=== PATIENT | female | born 1960 | race Caucasian/White ===

== ENCOUNTER → 2016-09-21 | Outpatient (CLI) | payer OTHER ==
--- NOTE | 2016-09-22 01:58 | REP ---
Clinical: Lower back pain. Comparison: 06/21/2016. Technique: AP, lateral, bilateral oblique, flexion/extension, and coned-down views. Findings: Alignment and lordosis maintained. Vertebral bodies are intact and there is no evidence for acute fracture / compression injury or subluxation. Mild multilevel degenerative changes include subtle anterior spurring along with endplate sclerosis and minimal disc space narrowing. Chronic grade 1 anterolisthesis at the L5-L1 level along with mild hypertrophic facet changes are again noted. Impression: Mild to moderate multilevel degenerative changes. Signed by Damaso Palacio MD 09/22/2016 01:50 A
== END ==
LOC: M SMT 11:11
PROVIDERS: ATTEND Family Medicine
DX: M51.37 Other intervertebral disc degeneration, lumbosacral region (principal)

== ENCOUNTER → 2016-10-16 | Outpatient (CLI) | payer OTHER ==
[~2016-10-16] MED LIST: CELE-19 PO
[2016-10-16 17:48] LABS: BASO % 0.4 % (0.0-1.0); EOS # 0.1 K/mm3 (0.0-0.50); EOS % 1.8 % (0.0-3.0); LARGE UNSTAINED CELL # 0.1 K/mm3 (0.0-0.4); LARGE UNSTAINED CELL % 1.9 % (0.0-4.0); LYMPH # 1.9 K/mm3 (1.5-4.5); LYMPH % 34.2 % (24.0-44.0); MEAN CORPUSCULAR HGB CONC 32.5 g/dl (32.0-36.5); MEAN CORPUSCULAR VOLUME 89.1 fl (80.0-96.0); MONO # 0.3 K/mm3 (0.0-0.8); MONO % 5.2 % (0.0-5.0); NEUTROPHILS # 3.2 K/mm3 (1.8-7.7); NEUTROPHILS % 56.6 % (36.0-66.0); PLATELET COUNT, AUTOMATED 197 k/mm3 (150-450); RED CELL DISTRIBUTION WIDTH 12.5 % (11.5-14.5); WHITE BLOOD COUNT 5.7 K/mm3 (4.0-10.0)
[2016-10-16 18:40] LABS: ALBUMIN 3.9 GM/DL (3.2-5.2); ALKALINE PHOSPHATASE 55 U/L (45-117); ALT/SGPT 20 U/L (12-78); ANION GAP 7 MEQ/L (8-16); AST/SGOT 16 U/L (15-37); BILIRUBIN,TOTAL 0.7 MG/DL (0.2-1.0); BLOOD UREA NITROGEN 16 MG/DL (7-18); CALCIUM LEVEL 8.6 MG/DL (8.5-10.1); CARBON DIOXIDE LEVEL 30 MEQ/L (21-32); CHLORIDE LEVEL 106 MEQ/L (98-107); CHOLESTEROL LEVEL 255 MG/DL (<200); CREATININE FOR GFR 0.84 MG/DL (0.55-1.02); GLOMERULAR FILTRATION RATE > 60.0 (>51); GLUCOSE, FASTING 82 MG/DL (70-105); POTASSIUM SERUM 4.6 MEQ/L (3.5-5.1); SODIUM LEVEL 143 MEQ/L (136-145); TOTAL PROTEIN 6.9 GM/DL (6.4-8.2); TRIGLYCERIDES LEVEL 148 MG/DL (<150)
== END ==
LOC: M SMT 13:12
PROVIDERS: ATTEND Family Medicine
DX: Z13.220 Encounter for screening for lipoid disorders (principal); Z13.29 Encounter for screening for other suspected endocrine disorder; Z13.0 Encounter for screening for diseases of the blood and blood-forming organs and certain disorders involving the immune mechanism

== ENCOUNTER 2016-10-18 11:21 | Emergency (ER) | payer OTHER ==
[~2016-10-18] VITALS: Ht 165.1 cm; Wt 62.6 kg
[2016-10-18 11:22] VITALS: BP 151/77
[2016-10-18] MEDS ORDERED: CELE-19 PO (11:50)
== END 2016-10-18 13:34 | disposition left against medical advice (07) ==
LOC: M ED 12:42
DX: R29.6 Repeated falls (principal); Z53.21 Procedure and treatment not carried out due to patient leaving prior to being seen by health care provider

== ENCOUNTER → 2016-10-20 | Outpatient (CLI) | payer OTHER ==
--- NOTE | 2016-10-20 12:42 | REP ---
BILATERAL RIBS, PA CHEST, FIVE VIEWS: HISTORY: Contusion. The lungs are clear. The heart is normal in size. The pulmonary vasculature is normal in appearance. The bony structure is intact. IMPRESSION: No acute disease. Signed by Gibran Cool MD 10/20/2016 12:49 P
--- NOTE | 2016-10-20 13:54 | REP ---
ULTRASOUND LEFT BREAST: Real-time sonographic evaluation of the left breast is performed after a fall onto her chest. The left breast demonstrates no fluid collection or definite suspicious mass. There is an underlying breast implant which appears intact. No leakage is seen from the implant. IMPRESSION: Unremarkable ultrasound with no evidence of fluid collection or implant rupture. Signed by Jose Lewis MD 10/20/2016 05:02 P
== END ==
LOC: M RAD 11:41
PROVIDERS: ATTEND Physician Assistant
DX: S20.02XA Contusion of left breast, initial encounter (principal); X58.XXXA Exposure to other specified factors, initial encounter; Y92.89 Other specified places as the place of occurrence of the external cause; Y93.89 Activity, other specified; Y99.8 Other external cause status

== ENCOUNTER 2017-03-26 16:11 | Emergency (ER) | payer OTHER, SELFPAY ==
[~2017-03-26] VITALS: Ht 165.1 cm; Wt 66.4 kg
[~2017-03-26 16:11] MED LIST changes: -CELE-19 PO; +CELE1CAP4 PO
[2017-03-26] MEDS ORDERED: CLIM0.05 TD (16:39)
[2017-03-26 17:02] LABS: BASO % 0.4 % (0.0-1.0); EOS # 0.1 K/mm3 (0.0-0.50); EOS % 1.6 % (0.0-3.0); LARGE UNSTAINED CELL # 0.1 K/mm3 (0.0-0.4); LARGE UNSTAINED CELL % 1.6 % (0.0-4.0); LYMPH # 1.9 K/mm3 (1.5-4.5); LYMPH % 35.1 % (24.0-44.0); MEAN CORPUSCULAR HGB CONC 33.9 g/dl (32.0-36.5); MEAN CORPUSCULAR VOLUME 85.6 fl (80.0-96.0); MONO # 0.3 K/mm3 (0.0-0.8); MONO % 4.8 % (0.0-5.0); NEUTROPHILS # 3.1 K/mm3 (1.8-7.7); NEUTROPHILS % 56.6 % (36.0-66.0); PLATELET COUNT, AUTOMATED 195 k/mm3 (150-450); RED CELL DISTRIBUTION WIDTH 12.3 % (11.5-14.5); WHITE BLOOD COUNT 5.5 K/mm3 (4.0-10.0)
--- NOTE | 2017-03-26 17:05 | REP ---
Portable chest x-ray: Single view. History: Chest pain. Findings: EKG monitoring electrodes overlie the chest. There are clips in the gallbladder fossa. The lungs are symmetrically aerated and clear. Heart is not enlarged. Pulmonary vasculature is not increased. No significant bony abnormality. Impression: No active disease. Signed by José Miguel Wells MD 03/27/2017 09:11 A
[2017-03-26 17:24] LABS: ALBUMIN 3.6 GM/DL (3.2-5.2); ALBUMIN/GLOBULIN RATIO 1.09 (1.00-1.93); ALKALINE PHOSPHATASE 47 U/L (45-117); ALT/SGPT 31 U/L (12-78); ANION GAP 7 MEQ/L (8-16); AST/SGOT 17 U/L (15-37); BILIRUBIN,DIRECT < 0.1 MG/DL (0.0-0.2); BILIRUBIN,TOTAL 0.4 MG/DL (0.2-1.0); BLOOD UREA NITROGEN 16 MG/DL (7-18); CALCIUM LEVEL 8.5 MG/DL (8.5-10.1); CARBON DIOXIDE LEVEL 26 MEQ/L (21-32); CHLORIDE LEVEL 110 MEQ/L (98-107); CREATININE FOR GFR 0.83 MG/DL (0.55-1.02); FREE T4 0.96 NG/DL (0.76-1.46); GLOMERULAR FILTRATION RATE > 60.0 (>51); GLUCOSE, FASTING 88 MG/DL (70-105); POTASSIUM SERUM 3.9 MEQ/L (3.5-5.1); SODIUM LEVEL 143 MEQ/L (136-145); TOTAL PROTEIN 6.9 GM/DL (6.4-8.2)
[2017-03-26 18:03] VITALS: BP 112/59
--- NOTE | 2017-03-26 20:38 | ECGEPIP ---
Stationary ECG Study [facility] - ED Test Date: 2017-03-26 Pat Name: JOE MANZO Department: Room: - Gender: F [employer] Development Manager: DIANA : 1960 Requested By: Max Alexander Order Number: [id number] Reading MD: Olga Quezada Measurements Intervals [place] Rate: 71 P: 66 CO: 162 QRS: 7 QRSD: 88 T: 40 QT: 386 QTc: 420 Interpretive Statements SINUS RHYTHM DELAYED R PROGRESSION NSTTW ABNORMALITY NO PRIOR FOR COMPARISON Electronically Signed On 03-26-2017 20:38:03 EDT by Olga Quezada
== END 2017-03-26 18:12 | disposition home or self-care (01) ==
LOC: M ED 16:11
DX: R00.2 Palpitations (principal); R94.31 Abnormal electrocardiogram [ECG] [EKG]; Z82.49 Family history of ischemic heart disease and other diseases of the circulatory system; Z79.899 Other long term (current) drug therapy; Z88.5 Allergy status to narcotic agent

== ENCOUNTER → 2018-05-31 | Outpatient (CLI) | payer OTHER ==
[2018-05-31 11:58] LABS: BASO % 0.6 % (0.0-1.0); EOS # 0.1 10^3/uL (0.0-0.50); HEMATOCRIT 41.1 % (36.0-47.0); HEMOGLOBIN 13.6 g/dl (12.0-15.5); IMMATURE GRANULOCYTE % 0.2 % (0-3.0); LYMPH # 1.8 10^3/uL (1.5-4.5); MEAN CORPUSCULAR HEMOGLOBIN 28.6 pg (27.0-33.0); MEAN CORPUSCULAR HGB CONC 33.1 g/dl (32.0-36.5); MEAN CORPUSCULAR VOLUME 86.3 fl (80.0-96.0); MONO # 0.4 10^3/uL (0.0-0.8); MONO % 6.9 % (0.0-5.0); NEUTROPHILS # 2.8 10^3/uL (1.8-7.7); NEUTROPHILS % 55.3 % (36.0-66.0); PLATELET COUNT, AUTOMATED 201 10^3/uL (150-450); RED BLOOD COUNT 4.76 10^6/uL (4.00-5.40); RED CELL DISTRIBUTION WIDTH 12.4 % (11.5-14.5); WHITE BLOOD COUNT 5.1 10^3/uL (4.0-10.0)
[2018-05-31 12:38] LABS: ALBUMIN 3.8 GM/DL (3.2-5.2); ALBUMIN/GLOBULIN RATIO 1.31 (1.00-1.93); ALKALINE PHOSPHATASE 52 U/L (45-117); ALT/SGPT 30 U/L (12-78); ANION GAP 5 MEQ/L (8-16); AST/SGOT 17 U/L (7-37); BILIRUBIN,TOTAL 0.7 MG/DL (0.2-1.0); BLOOD UREA NITROGEN 13 MG/DL (7-18); CALCIUM LEVEL 8.6 MG/DL (8.5-10.1); CARBON DIOXIDE LEVEL 30 MEQ/L (21-32); CHLORIDE LEVEL 109 MEQ/L (98-107); CHOLESTEROL LEVEL 290 MG/DL (<200); CHOLESTEROL RISK RATIO 4.084 (<5); CREATININE FOR GFR 0.89 MG/DL (0.55-1.30); FREE T4 1.03 NG/DL (0.76-1.46); GLOMERULAR FILTRATION RATE > 60.0 (>51); GLUCOSE, FASTING 89 MG/DL (70-100); HDL CHOLESTEROL 71 MG/DL (>40); LDL CHOLESTEROL 192 MG/DL (<100); NON-HDL-C 219 MG/DL; POTASSIUM SERUM 4.3 MEQ/L (3.5-5.1); SODIUM LEVEL 144 MEQ/L (136-145); TOTAL PROTEIN 6.7 GM/DL (6.4-8.2); TRIGLYCERIDES LEVEL 135 MG/DL (<150)
[2018-05-31 12:40] LABS: TOTAL 25(OH) VITAMIN D 23.8 NG/ML (30.0-100.0)
== END ==
LOC: M LAB 11:24
DX: Z13.29 Encounter for screening for other suspected endocrine disorder (principal); E78.2 Mixed hyperlipidemia; E55.9 Vitamin D deficiency, unspecified
CPT/HCPCS: 84443

== ENCOUNTER → 2018-07-11 | Outpatient (CLI) | payer OTHER | LOC: M SMT 14:29 | DX: M54.5 Low back pain (principal) | CPT/HCPCS: 72114 ==

== ENCOUNTER → 2018-07-24 | Outpatient (REF) | payer OTHER | LOC: M SFHCPLAZ 11:43 | DX: C44.41 Basal cell carcinoma of skin of scalp and neck (principal); L57.0 Actinic keratosis; D23.5 Other benign neoplasm of skin of trunk | CPT/HCPCS: 88305 ==

== ENCOUNTER → 2018-10-22 | Outpatient (REF) | payer OTHER ==
[~2018-10-22] MED LIST changes: +CLIM0.05 TD
== END ==
LOC: M SFHCPLAZ 09:56
PROVIDERS: ATTEND Dermatology
DX: L91.0 Hypertrophic scar (principal)